=== PATIENT | male | born 1995 | race Caucasian/White ===

== ENCOUNTER 2020-03-20 13:11 | Emergency (ER) | payer BC ==
[2020-03-20 13:20] VITALS: BP 119/75; PULSE 80; RESP 18; TEMP 98
[2020-03-20] MEDS ORDERED: DIPH,PERTUS(ACELL)TETVAC-LF 0.5 ML VIAL IM ONE (13:38)
--- NOTE | 2020-03-20 13:47 | ED ---
Lower Extremity Injury HPI - General Chief Complaint: Extremity Injury, Lower Stated Complaint: L Foot injury Time Seen by Provider: 03/20/20 13:21 Source: patient Mode of arrival: wheelchair Limitations: no limitations - History of Present Illness Initial Comments: Patient is a 24-year-old male presenting to the emergency Department with complaints of pain in the bottom of his left foot since yesterday. Patient states he was outside working on a fence when he actually stepped on a nail that was through a fence with his left foot. Patient states it did go through his shoe. He was able to pull the nail out without difficulty, he does not think it was in very far. He did clean his foot with hydrogen peroxide and then soaked it later in the day with Epsom salt. Patient states when he woke up this morning he felt like his foot was more sore and he does not remember his last tetanus shot so he decided to come into the ER. He denies any fever, chills, redness or drainage from the area. He is walking fine on it just some soreness rate around the puncture area. He has no further complaints at this time. Upon arrival to the ER his vital signs are stable. - Related Data Previous Rx's Medication Instructions Recorded Clindamycin HCl 300 mg PO Q6HR 7 Days #28 cap 03/20/20 Allergies Allergy/AdvReac Type Severity Reaction Status Date / Time No Known Allergies Allergy Verified 03/20/20 13:19 Review of Systems ROS Statement: Those systems with pertinent positive or pertinent negative responses have been documented in the HPI. ROS Other: All systems not noted in ROS Statement are negative. Past Medical History Past Medical History: No Reported History History of Any Multi-Drug Resistant Organisms: None Reported Past Surgical History: No Surgical Hx Reported Past Psychological History: No Psychological Hx Reported Smoking Status: Never smoker Past Alcohol Use History: Occasional Past Drug Use History: None Reported General Exam - General Exam Comments Initial Comments: GENERAL: Patient is well-developed and well-nourished. Patient is nontoxic and in no acute distress. HEAD: Atraumatic, normocephalic. EYES: Pupils equal round and reactive to light, extraocular movements intact, sclera anicteric, conjunctiva are normal. Eyelids were unremarkable. ENT: TMs normal, nares patent, oropharynx clear without exudates. Moist mucous membranes. NECK: Normal range of motion, supple without lymphadenopathy or JVD. LUNGS: Unlabored respirations. Breath sounds clear to auscultation bilaterally and equal. No wheezes rales or rhonchi. HEART: Regular rate and rhythm without murmurs, rubs or gallops. ABDOMEN: Soft, nontender, normoactive bowel sounds. No guarding, no rebound. No masses appreciated. : Deferred MUSCULOSKELETAL: Normal extremities with adequate strength and normal range of motion, no pitting or edema. No clubbing or cyanosis. NEUROLOGICAL: Patient is alert and oriented x 3. Motor and sensory are also intact. Normal speech, normal gait. PSYCH: Normal mood, normal affect. SKIN: Warm, Dry, normal turgor, no rashes. Patient has a very small puncture wound on the left foot, plantar surface near the distal end of the metatarsals. He does have full toe range of motion and movement. He is neurovascular intact. There is no erythema or discharge from the wound. Limitations: no limitations Course Vital Signs 03/20/20 13:18 Temperature 98.0 F Pulse Rate 80 Respiratory 18 Rate Blood Pressure 119/75 O2 Sat by Pulse 98 Oximetry Medical Decision Making - Medical Decision Making Patient is a 24-year-old male here after he stepped on a nail with his left foot yesterday. The nail did not go in very far, he is able to move without difficulty. He does not remember his last tetanus vaccine. No fevers, no drainage or redness. Patient has full range of motion of his foot and toes. He is neurovascular intact. I will update patient's tetanus shot today and start patient on Cipro. Patient is agreeable with this plan of care. Strict return parameters were discussed with the patient and he verbalized understanding. He may take Tylenol or Motrin for discomfort. Follow up with his PCP. Disposition Clinical Impression: Puncture wound of left foot Disposition: HOME SELF-CARE Condition: Stable Instructions (If sedation given, give patient instructions): Puncture Wound (ED) Additional Instructions: Please return to the Emergency Department if symptoms worsen or any other concerns. Your tetanus vaccine was updated today. Take antibiotic as prescribed. Keep wound clean and dry. Follow-up with PCP if symptoms persist. Prescriptions: Clindamycin HCl 300 mg PO Q6HR 7 Days #28 cap Is patient prescribed a controlled substance at d/c from ED?: No Referrals: None,Stated [Primary Care Provider] - 1-2 days
== END 2020-03-20 13:57 | disposition home or self-care (01) ==
LOC: EC 13:11
DX: S91.332A Puncture wound without foreign body, left foot, initial encounter (principal); Z23 Encounter for immunization; W45.0XXA Nail entering through skin, initial encounter; Y93.89 Activity, other specified; Y92.89 Other specified places as the place of occurrence of the external cause
CPT/HCPCS: 90471; 90715; 99283

== ENCOUNTER → 2020-11-25 | Outpatient (CLI) | payer BC ==
--- NOTE | 2020-11-25 20:52 | MR ---
EXAMINATION TYPE: MR shoulder arthrogram RT w contrast DATE OF EXAM: 11/25/2020 COMPARISON: Arthrogram injection same day HISTORY: 25-year-old male worsening Right shoulder pain Technique: Multiplanar, multisequence images of the right shoulder obtained after intra-articular adm inistration of a gadolinium mixture. Please refer to arthrogram injection report of the same day for further details. FINDINGS: Satisfactory distention of the glenohumeral joint after intra-articular administration of contrast. The proximal long head biceps tendon just beyond the anchor shows some minimal linear increased signa l, refer to sagittal image 16 and 17. The biceps anchor and glenoid labrum appear intact. The supraspinatus and infraspinatus tendons are intact. The subscapularis tendon is intact. No atrophy of the rotator cuff musculature. No effusion or thickening within the subacromial/subdeltoid bursa. The AC joint is intact. No abnormal thickening of the coracohumeral ligament or axillary recess. The glenohumeral joint is intact. No discrete high-grade cartilage injury is seen. No Hill-Sachs deformity or os acromiale. IMPRESSION: 1. No appreciable rotator cuff or labral tear. No discrete chondral injury of the glenohumeral joint. 2. There is some linear increased signal within the substance of the proximal portion of the intracap sular long head biceps tendon suggesting an interstitial tear (sagittal image 16 and 17).
== END | disposition home or self-care (01) ==
LOC: RADFLMAIN 12:39
PROVIDERS: ATTEND Orthopaedic Surgery
DX: M25.511 Pain in right shoulder (principal); G89.29 Other chronic pain
CPT/HCPCS: 23350; 73040; 73222; A9585; Q9967

== ENCOUNTER 2022-11-18 17:59 | Emergency (ER) | payer BC ==
[2022-11-18] MEDS ORDERED: FAMOTIDINE 20 MG/2 ML VIAL IV STA (18:22)
[2022-11-18] MEDS ORDERED: diphenhydrAMINE 50 MG/ML 1 ML VIAL IVP STA (18:22)
[2022-11-18] MEDS ORDERED: DEXAMETHASONE SOD PHOSPHATE 10 MG/ML 1 ML VIAL IV STA (18:22)
--- NOTE | 2022-11-18 18:28 | ED ---
General Adult HPI - General Chief complaint: Allergic Reaction Stated complaint: bee sting,sob Time Seen by Provider: 11/18/22 18:18 Source: patient Mode of arrival: ambulatory - History of Present Illness Initial comments: Dictation was produced using [employer] dictation software. please excuse any grammatical, word or spelling errors. Chief Complaint: 27-year-old male presents to emergency Department with shortness breath and rash after bee sting History of Present Illness: 27-year-old male he was stung by multiple bees today. Patient states she's been stung in the past multiple times by bees year ago. Just prior to arrival was stung by a bee shortly after started developing shortness of breath, sensation of throat closure and itchy rash. States that the rash covers his whole body. Denies any medical problems. Patient has never had a reaction to bee stings in the past. The ROS documented in this emergency department record has been reviewed and confirmed by me. Those systems with pertinent positive or negative responses have been documented in the HPI. All other systems are other negative and/or noncontributory. - Related Data Previous Rx's Medication Instructions Recorded clindamycin HCL [Clindamycin HCl] 300 mg PO Q6HR 7 Days #28 cap 03/20/20 EPINEPHrine (Auto Inject) [Epipen] 0.3 mg IM ONCE PRN #2 each 11/18/22 Allergies Allergy/AdvReac Type Severity Reaction Status Date / Time No Known Allergies Allergy Verified 11/18/22 18:06 Review of Systems ROS Statement: Those systems with pertinent positive or pertinent negative responses have been documented in the HPI. ROS Other: All systems not noted in ROS Statement are negative. Past Medical History Past Medical History: No Reported History History of Any Multi-Drug Resistant Organisms: None Reported Past Surgical History: No Surgical Hx Reported Past Psychological History: No Psychological Hx Reported Smoking Status: Never smoker Past Alcohol Use History: Occasional Past Drug Use History: None Reported General Exam - General Exam Comments Initial Comments: PHYSICAL EXAM: General Impression: Alert and oriented x3, not in acute distress HEENT: Normocephalic atraumatic, extra-ocular movements intact, pupils equal and reactive to light bilaterally, mucous membranes moist. Cardiovascular: Heart regular rate and rhythm Chest: Mildly dyspneic, faint wheezing bilaterally Abdomen: abdomen soft, non-tender, non-distended, no organomegaly Musculoskeletal: Pulses present and equal in all extremities, no peripheral edema Motor: no focal deficits noted Neurological: CN II-XII grossly intact, no focal motor or sensory deficits noted Skin: Diffuse urticarial rash Psych: Normal affect and mood Course Vital Signs 11/18/22 11/18/22 18:02 19:05 Temperature 98.0 F 98.5 F Pulse Rate 89 69 Respiratory 21 18 Rate Blood Pressure 123/78 124/81 O2 Sat by Pulse 94 L 97 Oximetry Medical Decision Making - Medical Decision Making Was pt. sent in by a medical professional or institution (, PA, EHR TRAINER, urgent care, hospital, or intermediate...) When possible be specific @ -No Did you speak to anyone other than the patient for history (EMS, parent, family, police, friend...)? What history was obtained from this source @ -No Did you review nursing and triage notes (agree or disagree)? Why? @ -I reviewed and agree with nursing and triage notes Were old charts reviewed (outside hosp., previous admission, EMS record, old EKG, old radiological studies, urgent care reports/EKG's, intermediate records)? Report findings @ -No old charts were reviewed Differential Diagnosis (chest pain, altered mental status, abdominal pain women, abdominal pain men, vaginal bleeding, musculoskeletal, weakness, fever, dyspnea, syncope, headache, dizziness, GI bleed, back pain, seizure, CVA, palpatations, mental health)? @ -Differential Dyspnea: Coronary syndrome, arrhythmia, tamponade, asthma, COPD, pulmonary embolism, pneumonia, pneumothorax, pulmonary effusion, anaphylaxis, diabetic ketoacidosis, flailed chest, pulmonary contusion, diaphragmatic rupture, anemia, neuromuscular, this is not meant to be an all-inclusive list. EKG interpreted by me (3pts min.). @ -None done X-rays interpreted by me (1pt min.). @ -None done CT interpreted by me (1pt min.). @ -None done U/S interpreted by me (1pt. min.). @ -None done What testing was considered but not performed or refused? (CT, X-rays, U/S, labs)? Why? @ -None What meds were considered but not given or refused? Why? @ -None Did you discuss the management of the patient with other professionals (professionals i.e. , PA, EHR TRAINER, lab, RT, psych nurse, group social worker, change management coordinator, teacher, security police officer, pillowcase sewer)? Give summary @ -No Was smoking cessation discussed for >3mins.? @ -No Was critical care preformed (if so, how long)? @ -No Were there social determinants of health that impacted care today? How? (H omelessness, low income, unemployed, alcoholism, drug addiction, transportation, low edu. Level, literacy, decrease access to med. care, long term, rehab)? @ -No Was there de-escalation of care discussed even if they declined (Discuss DNR or withdrawal of care, Hospice)? DNR status @ -No What co-morbidities impacted this encounter? (DM, HTN, Smoking, COPD, CAD, Cancer, CVA, ARF, Chemo, Hep., AIDS, mental health diagnosis, sleep apnea, morbid obesity)? @ -None Was patient admitted / discharged? Hospital course, mention meds given and route, prescriptions, significant lab abnormalities, going to OR and other pertinent info. @ -27 Old male presents emergency Department with difficulty in breathing and rash after stung by a bee. Clinical presentation consistent with anaphylaxis. Vital signs upon arrival are within acceptable limits. Patient given IM FB injection. Is also given steroids, antihistamines. Observed emergency department for approximately 2 hours. Reevaluated at bedside 8:00 PM with resolved symptoms. Patient we will discharge him prescription for autoinjector Undiagnosed new problem with uncertain prognosis? @ -No Drug Therapy requiring intensive monitoring for toxicity (Heparin, Nitro, Insulin, Cardizem)? @ -No Were any procedures done? @ -No Diagnosis/symptom? Acute, or Chronic, or Acute on Chronic? Uncomplicated (without systemic symptoms) or Complicated (systemic symptoms)? @ -Anaphylaxis Side effects of treatment? @ -No Exacerbation, Progression, or Severe Exacerbation? @ -No Poses a threat to life or bodily function? How? (Chest pain, [place], [place], pneumonia, PE, COPD, DKA, ARF, appy, cholecystitis, CVA, Diverticulitis, Homicidal, Suicidal, threat to staff... and all critical care pts) @ -yes Disposition Clinical Impression: Anaphylaxis Disposition: HOME SELF-CARE Condition: Good Instructions (If sedation given, give patient instructions): Anaphylaxis (ED) Prescriptions: EPINEPHrine (Auto Inject) [Epipen] 0.3 mg IM ONCE PRN #2 each PRN Reason: Anaphylaxis Is patient prescribed a controlled substance at d/c from ED?: No Referrals: None,Stated [Primary Care Provider] - 1-2 days Time of Disposition: 19:57
[2022-11-18 19:18] VITALS: RESP 18
[2022-11-18 20:12] VITALS: BP 123/74; PULSE 78; TEMP 98.8
== END 2022-11-18 20:12 | disposition home or self-care (01) ==
LOC: EC 17:59
DX: T78.2XXA Anaphylactic shock, unspecified, initial encounter (principal)
CPT/HCPCS: 99283; 96374; 96375 ×2; 96372; J0171; J1200; J1100

== ENCOUNTER 2022-11-19 20:05 | Emergency (ER) | payer BC ==
[2022-11-19 20:10] VITALS: TEMP 98.3
[2022-11-19] MEDS ORDERED: SODIUM CHLORIDE 0.9% 1,000 ML IV STA (20:40)
[2022-11-19] MEDS ORDERED: FAMOTIDINE 20 MG/2 ML VIAL IV STA (20:40)
[2022-11-19] MEDS ORDERED: diphenhydrAMINE 50 MG/ML 1 ML VIAL IVP STA (20:40)
[2022-11-19] MEDS ORDERED: methylPREDNISolone SOD SUCCI 125 MG/2 ML VIAL IV STA (20:42)
--- NOTE | 2022-11-19 22:44 | ED ---
Allergic Reaction HPI - General Chief complaint: Allergic Reaction Stated complaint: allergic reaction-bee sting Time Seen by Provider: 11/19/22 20:18 Source: patient Mode of arrival: ambulatory Limitations: no limitations - History of Present Illness Initial Comments: Patient is a 27-year-old male who presents the emergency department for ALLERGIC reaction. He presented in our emergency department yesterday after multiple bee stings. He was diagnosed with anaphylaxis. Prior to yesterday he has never had an ALLERGIC reaction to insect sting or bite. Patient states he was feeling better until this afternoon when the rash started to come back. It is very itchy. He denies chest pain, shortness of breath, tongue or throat swelling - Related Data Previous Rx's Medication Instructions Recorded EPINEPHrine (Auto Inject) [Epipen] 0.3 mg IM ONCE PRN #2 each 11/18/22 predniSONE 50 mg PO DAILY #5 tab 11/19/22 Allergies Allergy/AdvReac Type Severity Reaction Status Date / Time bee pollen Allergy Severe Anaphylaxis Verified 11/19/22 22:43 Review of Systems ROS Statement: Those systems with pertinent positive or pertinent negative responses have been documented in the HPI. ROS Other: All systems not noted in ROS Statement are negative. Past Medical History Past Medical History: No Reported History History of Any Multi-Drug Resistant Organisms: None Reported Past Surgical History: No Surgical Hx Reported Past Psychological History: No Psychological Hx Reported Smoking Status: Never smoker Past Alcohol Use History: Occasional Past Drug Use History: None Reported General Exam Limitations: no limitations General appearance: alert ENT exam: Present: normal oropharynx Respiratory exam: Present: normal lung sounds bilaterally. Absent: respiratory distress, wheezes, rales, rhonchi, stridor Cardiovascular Exam: Present: regular rate, normal rhythm, normal heart sounds. Absent: systolic murmur, diastolic murmur, rubs, gallop, clicks Neurological exam: Present: alert Skin exam: Present: warm, dry, intact, normal color, rash (Widespread urticaria) Course Vital Signs 11/19/22 11/19/22 20:08 23:11 Temperature 98.3 F Pulse Rate 64 78 Respiratory 16 18 Rate Blood Pressure 138/84 119/76 O2 Sat by Pulse 96 98 Oximetry Medical Decision Making - Medical Decision Making Was pt. sent in by a medical professional or institution (, PA, RAILROAD CAR CLEANING SUPERVISOR, urgent care, hospital, or skilled nursing...) When possible be specific @ -No Did you speak to anyone other than the patient for history (EMS, parent, family, police, friend...)? What history was obtained from this source @ -No Did you review nursing and triage notes (agree or disagree)? Why? @ -I reviewed and agree with nursing and triage notes Were old charts reviewed (outside hosp., previous admission, EMS record, old EKG, old radiological studies, urgent care reports/EKG's, skilled nursing records)? Report findings @ -No old charts were reviewed Differential Diagnosis (chest pain, altered mental status, abdominal pain women, abdominal pain men, vaginal bleeding, weakness, fever, dyspnea, syncope, headache, dizziness, GI bleed, back pain, seizure, CVA, palpatations, mental health)? @ -ALLERGIC reaction, anaphylaxis, urticaria. This list is not meant to be all-inclusive EKG interpreted by me (3pts min.). @ -As above X-rays interpreted by me (1pt min.). @ -None done CT interpreted by me (1pt min.). @ -None done U/S interpreted by me (1pt. min.). @ -None done What testing was considered but not performed or refused? (CT, X-rays, U/S, labs)? Why? @ -None What meds were considered but not given or refused? Why? @ -None Did you discuss the management of the patient with other professionals (professionals i.e. , PA, RAILROAD CAR CLEANING SUPERVISOR, lab, RT, psych nurse, social services director, cheese factory worker, teacher, aoc director combat operations officer, case packer and sealer)? Give summary @ -No Was smoking cessation discussed for >3mins.? @ -No Was critical care preformed (if so, how long)? @ -No Were there social determinants of health that impacted care today? How? (Homelessness, low income, unemployed, alcoholism, drug addiction, transportation, low edu. Level, literacy, decrease access to med. care, halfway, rehab)? @ -No Was there de-escalation of care discussed even if they declined (Discuss DNR or withdrawal of care, Hospice)? DNR status @ -No What co-morbidities impacted this encounter? (DM, HTN, Smoking, COPD, CAD, Cancer, CVA, ARF, Chemo, Hep., AIDS, mental health diagnosis, sleep apnea, morbid obesity)? @ -None Was patient admitted / discharged? Hospital course, mention meds given and route, prescriptions, significant lab abnormalities, going to OR and other pertinent info. @ -Patient presenting with widespread urticaria after multiple bee stings yesterday. No hypoxia, no evidence of airway involvement. Patient given ALLERGIC reaction cocktail. He was observed in the emergency department and rash/symptoms continue to improve. Patient in stable medical condition for discharge. He will be discharged with prednisone prescription. He is to continue Benadryl home. Undiagnosed new problem with uncertain prognosis? @ -No Drug Therapy requiring intensive monitoring for toxicity (Heparin, Nitro, Insulin, Cardizem)? @ -No Were any procedures done? @ -No Diagnosis/symptom? @ALLERGIC reaction Acute, or Chronic, or Acute on Chronic? @Acute Uncomplicated (without systemic symptoms) or Complicated (systemic symptoms)? @Uncomplicated Side effects of treatment? @ -No Exacerbation, Progression, or Severe Exacerbation? @ -No Poses a threat to life or bodily function? How? (Chest pain, [place], [place], pneumonia, PE, COPD, DKA, ARF, appy, cholecystitis, CVA, Diverticulitis, Homicidal, Suicidal, threat to staff... and all critical care pts) @No Dr. Esparza is my attending Disposition Clinical Impression: Allergic reaction to insect sting Disposition: HOME SELF-CARE Condition: Good Instructions (If sedation given, give patient instructions): Anaphylaxis (ED) Additional Instructions: Continue Benadryl. Take prednisone as directed. Start prescription tomorrow. Please follow-up with your primary care provider in 1-2 days. Return to the emergency department if you experience new, concerning, or worsening symptoms. Prescriptions: predniSONE 50 mg PO DAILY #5 tab Is patient prescribed a controlled substance at d/c from ED?: No Referrals: None,Stated [Primary Care Provider] - 1-2 days
[2022-11-19 23:12] VITALS: BP 119/76; PULSE 78; RESP 18
== END 2022-11-19 23:24 | disposition home or self-care (01) ==
LOC: EC 20:05
DX: T63.481A Toxic effect of venom of other arthropod, accidental (unintentional), initial encounter (principal); Z91.030 Bee allergy status
CPT/HCPCS: 99282; 96374; 96375 ×2; 96361; J1200; J2930

== ENCOUNTER 2022-11-21 07:03 | Emergency (ER) | payer BC ==
[2022-11-21] MEDS ORDERED: methylPREDNISolone SOD SUCCI 125 MG/2 ML VIAL IM ONE (07:22)
[2022-11-21 07:55] LABS: Basophils % (A) 0 %; Eosinophils % (A) 0 %; HCT 42.4 % (39.0-53.0); HGB 14.8 gm/dL (13.0-17.5); Lymphocytes # (A) 0.9 k/uL (1.0-4.8); Lymphocytes % (A) 8 %; MCH 29.1 pg (25.0-35.0); Mean Platelet Volume 8.5; Monocytes # (A) 0.5 k/uL (0-1.0); Monocytes % (A) 5 %; Neutrophils # (A) 9.6 k/uL (1.3-7.7); Neutrophils % (A) 87 %; Platelet Count 165 k/uL (150-450); RDW 13.1 % (11.5-15.5)
[2022-11-21 08:04] LABS: ALT 28 U/L (4-49); AST 23 U/L (17-59); African American GFR (CKD) >90 (>60 ml/min/1.73 sqM); Albumin 4.2 g/dL (3.5-5.0); Alkaline Phosphatase 56 U/L (38-126); Anion Gap 7 mmol/L; Blood Urea Nitrogen 15 mg/dL (9-20); Carbon Dioxide 27 mmol/L (22-30); Chloride 105 mmol/L (98-107); Glucose 114 mg/dL (74-99); Non-African American GFR(CKD) >90 (>60 ml/min/1.73 sqM); Potassium 4.1 mmol/L (3.5-5.1); Sodium 139 mmol/L (137-145); Total Bilirubin 0.6 mg/dL (0.2-1.3); Total Protein 6.4 g/dL (6.3-8.2)
[2022-11-21 08:57] LABS: C Reactive Protein <0.5 mg/dL (<1.0)
--- NOTE | 2022-11-21 10:10 | ED ---
Skin/Abscess/FB HPI - General Chief complaint: Skin/Abscess/Foreign Body Stated complaint: Allergic Reaction Time Seen by Provider: 11/21/22 07:12 Source: patient, RN notes reviewed Mode of arrival: ambulatory Limitations: no limitations - History of Present Illness Initial comments: Patient is 27-year-old male presenting the emergency room with complaints of a generalized rash that started after being stung by a bee he states that he was seen for the rash and given a single dose of steroids along with a Medrol Dosepak and then was advised to use Benadryl here. He reports that the rash went away and then came back. He is presenting as the rash is very itchy and seems to be worsening. He denies any difficulty in breathing, lesions amount around his mouth, abdominal pain, nausea, vomiting, fevers or chills. He denies any known renal exposure to his allergen. She has no other significant past medical history. - Related Data Previous Rx's Medication Instructions Recorded EPINEPHrine (Auto Inject) [Epipen] 0.3 mg IM ONCE PRN #2 each 11/18/22 predniSONE 50 mg PO DAILY #5 tab 11/19/22 methylPREDNISolone Dose Pack 4 mg PO DIRECTED #21 tab 11/21/22 [Medrol Dose Pack] Allergies Allergy/AdvReac Type Severity Reaction Status Date / Time bee pollen Allergy Severe Anaphylaxis Verified 11/21/22 07:03 Review of Systems ROS Statement: Those systems with pertinent positive or pertinent negative responses have been documented in the HPI. ROS Other: All systems not noted in ROS Statement are negative. Past Medical History Past Medical History: No Reported History History of Any Multi-Drug Resistant Organisms: None Reported Past Surgical History: No Surgical Hx Reported Past Psychological History: No Psychological Hx Reported Smoking Status: Never smoker Past Alcohol Use History: Occasional Past Drug Use History: None Reported General Exam Limitations: no limitations General appearance: alert, in no apparent distress Head exam: Present: atraumatic, normocephalic, normal inspection Eye exam: Present: normal appearance, PERRL, EOMI. Absent: scleral icterus, conjunctival injection, periorbital swelling ENT exam: Present: normal exam, mucous membranes moist Neck exam: Present: normal inspection, full ROM Respiratory exam: Absent: respiratory distress, accessory muscle use Cardiovascular Exam: Present: regular rate GI/Abdominal exam: Present: soft. Absent: distended, tenderness, guarding, rebound, rigid Extremities exam: Present: other (Bilateral upper and lower extremities with macular papular rash). Absent: pedal edema, joint swelling Back exam: Present: normal inspection Neurological exam: Present: alert, oriented X3, CN II-XII intact Psychiatric exam: Present: normal affect, normal mood Skin exam: Present: rash (as document above) Course Vital Signs 11/21/22 11/21/22 07:04 10:41 Temperature 97.6 F Pulse Rate 55 L 64 Respiratory 18 16 Rate Blood Pressure 132/88 121/77 O2 Sat by Pulse 98 98 Oximetry Medical Decision Making - Medical Decision Making Was pt. sent in by a medical professional or institution (, PA, FEDERAL APPELLATE LAW CLERK, urgent care, hospital, or fdc...) When possible be specific @ -No Did you speak to anyone other than the patient for history (EMS, parent, family, police, friend...)? What history was obtained from this source @ -No Did you review nursing and triage notes (agree or disagree)? Why? @ -I reviewed and agree with nursing and triage notes Were old charts reviewed (outside hosp., previous admission, EMS record, old EKG, old radiological studies, urgent care reports/EKG's, fdc records)? Report findings @ -No old charts were reviewed Differential Diagnosis (chest pain, altered mental status, abdominal pain women, abdominal pain men, vaginal bleeding, weakness, fever, dyspnea, syncope, headache, dizziness, GI bleed, back pain, seizure, CVA, palpatations, mental health, musculoskeletal)? @ -Differential Rash: Contact dermatitis, allergic reaction, petechial rash, herpes zoster, urticaria, MRSA infection, cellulitis, erythema multiformea, tinea corpus, impetigo, and, insect bite, atopic dermatitis, this is not meant to be an all-inclusive list. EKG interpreted by me (3pts min.). @ -None done X-rays interpreted by me (1pt min.). @ -None done CT interpreted by me (1pt min.). @ -None done U/S interpreted by me (1pt. min.). @ -None done What testing was considered but not performed or refused? (CT, X-rays, U/S, labs)? Why? @ -None What meds were considered but not given or refused? Why? @ -None Did you discuss the management of the patient with other professionals (professionals i.e. , PA, [employer] APPELLATE LAW CLERK, lab, RT, psych nurse, social media analyst, home energy rater, teacher, strategic intelligence officer, home health care case manager)? Give summary @ -No Was smoking cessation discussed for >3mins.? @ -No Was critical care preformed (if so, how long)? @ -No Were there social determinants of health that impacted care today? How? (Homelessness, low income, unemployed, alcoholism, drug addiction, transportation, low edu. Level, literacy, decrease access to med. care, senior care, rehab)? @ -No Was there de-escalation of care discussed even if they declined (Discuss DNR or withdrawal of care, Hospice)? DNR status @ -No What co-morbidities impacted this encounter? (DM, HTN, Smoking, COPD, CAD, Cancer, CVA, ARF, Chemo, Hep., AIDS, mental health diagnosis, sleep apnea, morbid obesity)? @ -None Was patient admitted / discharged? Hospital course, mention meds given and route, prescriptions, significant lab abnormalities, going to OR and other pertinent info. @ - 27-year-old male presenting the emergency room with complaints of a generalized rash that started after being stung by a bee he states that he was seen for the rash and given a single dose of steroids along with a Medrol Dosepak and then was advised to use Benadryl here. Due to recurrence of rash given steroid treatment will obtain laboratory studies of CBC and CMP. Will restart Medrol Dosepak. CBC was slightly elevated WBC at 11.0 consistent with inflammatory process, neutrophils 9.6 lymphocytes 0.9 normal less than of cells. CMP with elevated glucose at 114 otherwise no abnormalities. Findings discussed with patient. Advised increased dose of steroid dosing given lack of response and recurrence on Medrol Dosepak will discharge on prednisone advising stoppage of Medrol Dosepak and no use of NSAIDs while taking prednisone. Encouraged use of Benadryl as needed along with topical hydrocortisone cream for itching. Will discharge home in stable condition on steroids along with antihistamine use for ALLERGIC dermatitis. Undiagnosed new problem with uncertain prognosis? @ -No Drug Therapy requiring intensive monitoring for toxicity (Heparin, Nitro, Insulin, Cardizem)? @ -No Were any procedures done? @ -No Diagnosis/symptom? @ -ALLERGIC dermatitis Acute, or Chronic, or Acute on Chronic? @ -Acute Uncomplicated (without systemic symptoms) or Complicated (systemic symptoms)? @ -Uncomplicated Side effects of treatment? @ -No Exacerbation, Progression, or Severe Exacerbation? @ -No Poses a threat to life or bodily function? How? (Chest pain, [place], [place], pneumonia, PE, COPD, DKA, ARF, appy, cholecystitis, CVA, Diverticulitis, Homicidal, Suicidal, threat to staff... and all critical care pts) @ -No Case discussed with Dr. Ulloa. - Lab Data Result diagrams: 11/21/22 07:33 11/21/22 07:33 Lab Results 11/21/22 11/21/22 Range/Units 07:33 07:33 WBC 11.0 H (3.8-10.6) k/uL RBC 5.10 (4.30-5.90) m/uL Hgb 14.8 (13.0-17.5) gm/dL Hct 42.4 (39.0-53.0) % MCV 83.0 (80.0-100.0) fL MCH 29.1 (25.0-35.0) pg MCHC 35.0 (31.0-37.0) g/dL RDW 13.1 (11.5-15.5) % Plt Count 165 (150-450) k/uL MPV 8.5 Neutrophils % 87 % Lymphocytes % 8 % Monocytes % 5 % Eosinophils % 0 % Basophils % 0 % Neutrophils # 9.6 H (1.3-7.7) k/uL Lymphocytes # 0.9 L (1.0-4.8) k/uL Monocytes # 0.5 (0-1.0) k/uL Eosinophils # 0.0 (0-0.7) k/uL Basophils # 0.0 (0-0.2) k/uL ESR 2 (0-15) mm/hr Sodium 139 (137-145) mmol/L Potassium 4.1 (3.5-5.1) mmol/L Chloride 105 (98-107) mmol/L Carbon Dioxide 27 (22-30) mmol/L Anion Gap 7 mmol/L BUN 15 (9-20) mg/dL Creatinine 0.89 (0.66-1.25) mg/dL Est GFR (CKD-EPI)AfAm >90 (>60 ml/min/1.73 sqM) Est GFR (CKD-EPI)NonAf >90 (>60 ml/min/1.73 sqM) Glucose 114 H (74-99) mg/dL Calcium 9.0 (8.4-10.2) mg/dL Total Bilirubin 0.6 (0.2-1.3) mg/dL AST 23 (17-59) U/L ALT 28 (4-49) U/L Alkaline Phosphatase 56 (38-126) U/L C-Reactive Protein <0.5 (<1.0) mg/dL Total Protein 6.4 (6.3-8.2) g/dL Albumin 4.2 (3.5-5.0) g/dL Disposition Clinical Impression: Allergic dermatitis Disposition: HOME SELF-CARE Condition: Stable Instructions (If sedation given, give patient instructions): Dermatitis (ED) Additional Instructions: Stop prednisone prescription and start Medrol Dosepak in the morning. Do not take other steroids or NSAIDs while taking Medrol Dosepak. May use 25-50 mg of Benadryl [id number] every 6-8 hours for itching as needed. use of morning antihistamine Claritin, Zyrtec or Kyleigh is also recommended. Avoid irritants and allergens when possible. Please return to the Emergency Department if symptoms worsen or any other concerns. Prescriptions: methylPREDNISolone Dose Pack [Medrol Dose Pack] 4 mg PO DIRECTED #21 tab Is patient prescribed a controlled substance at d/c from ED?: No Referrals: None,Stated [Primary Care Provider] - 1-2 days Time of Disposition: 10:10
[2022-11-21 10:31] LABS: Erythrocyte Sedimentation Rate 2 mm/hr (0-15)
[2022-11-21 10:43] VITALS: BP 121/77; PULSE 64; RESP 16; TEMP 97.6
== END 2022-11-21 10:43 | disposition home or self-care (01) ==
LOC: EC 07:03
DX: L23.9 Allergic contact dermatitis, unspecified cause (principal)
CPT/HCPCS: 36415; 80053; 85652; 85025; 86140; 99283; 96372; J2930

== ENCOUNTER 2023-11-27 10:33 | Emergency (ER) | payer OTHER, BC ==
[2023-11-27] MEDS ORDERED: diphenhydrAMINE 50 MG/ML 1 ML VIAL ONE (11:38)
[2023-11-27] MEDS ORDERED: methylPREDNISolone SOD SUCCI 125 MG/2 ML VIAL ONE (11:38)
== END 2023-11-27 13:00 | disposition home or self-care (01) ==
LOC: EC 10:33
DX: S40.862A Insect bite (nonvenomous) of left upper arm, initial encounter (principal); W57.XXXA Bitten or stung by nonvenomous insect and other nonvenomous arthropods, initial encounter
CPT/HCPCS: 99282; 96372 ×2; J1200; J2919